=== PATIENT | female | born 1955 | race African-American/Black ===

== ENCOUNTER 2022-11-23 08:04 | Day surgery (SDC) | payer MEDICARE ==
[2022-11-22 10:25] VITALS: BMI 53.7
[2022-11-23] MEDS ORDERED: PROPOFOL 40 ML ONE (09:35)
[2022-11-23] MEDS ORDERED: Lidocaine 1% PF 5 ML VIAL ONE (09:36)
[2022-11-23] MEDS ORDERED: PROPOFOL 20 ML ONE (10:07)
== END 2022-11-23 11:45 | disposition home or self-care (01) ==
LOC: CSHSDC 08:04
PROVIDERS: ATTEND Internal Medicine Gastroenterology
PROC: 0DJD8ZZ Inspection of Lower Intestinal Tract, Via Natural or Artificial Opening Endoscopic (ICD-10-PCS; principal; 2022-11-23)
DX: Z12.11 Encounter for screening for malignant neoplasm of colon (principal); K57.30 Diverticulosis of large intestine without perforation or abscess without bleeding; K64.8 Other hemorrhoids; I10 Essential (primary) hypertension; E11.9 Type 2 diabetes mellitus without complications; Z86.010 Personal history of colon polyps; E66.01 Morbid (severe) obesity due to excess calories; Z68.43 Body mass index [BMI] 50.0-59.9, adult; Z79.899 Other long term (current) drug therapy; Z90.49 Acquired absence of other specified parts of digestive tract; Z96.651 Presence of right artificial knee joint; Z90.710 Acquired absence of both cervix and uterus; Z86.73 Personal history of transient ischemic attack (TIA), and cerebral infarction without residual deficits; Z79.84 Long term (current) use of oral hypoglycemic drugs
CPT/HCPCS: J2704